=== PATIENT | female | born 1990 | race American Indian/Alaskan Native ===

== ENCOUNTER 2022-04-07 08:05 | Emergency (ER) | payer MEDICAID, SELFPAY ==
[2022-04-07 09:06] LABS: HCG Qualitative,Urine Positive (Negative)
[2022-04-07 09:17] LABS: Bilirubin,Urine NEG (Negative); Blood,Urine NEG (Negative); Color,Urine Amber (Yellow); Mucus,Urine 3+ /HPF
[2022-04-07 11:46] VITALS: BP 128/89
--- NOTE | 2022-04-07 13:08 | Emergency Department Report ---
ED Female HPI - General Chief complaint: Urogenital-Female Stated complaint: 10 WEEKS /UTI/DEHYDRATION Time Seen by Provider: 04/07/22 11:26 Source: patient Mode of arrival: Ambulatory Limitations: No Limitations - History of Present Illness Initial comments: 32-year-old female presents Department complaining of increased urinary urgency decreased urinary production being and is worried about having a UTI. She reports no fever, chills, sweats. No vaginal bleeding, no vaginal discharge. She has an [employer] for which she follows up. MD Complaint: dysuria -: Gradual (3) Location: suprapubic Radiation: suprapubic Severity: mild, moderate Quality: burning Improves with: none Worsens with: none Are you Now?: Yes Associated Symptoms: nausea/vomiting, dysuria - Related Data Previous Rx's Medication Instructions Recorded Last Taken Type DOXYCYCLINE Hyclate [Vibramycin 100 mg PO BID #20 capsule 04/07/14 Unknown Rx CAP] HYDROcodone/APAP 10-325 [Imogene 1 each PO Q4-6H PRN #20 tablet 07/30/14 Unknown Rx 10-325 mg TAB] predniSONE [Deltasone] 50 mg PO QDAY #4 tab 07/30/14 Unknown Rx Azithromycin [Zithromax TAB] 500 mg PO QDAY #5 tablet 02/10/15 Unknown Rx Fluticasone Propionate [Flonase] 2 sprays NS QDAY #1 bottle 02/10/15 Unknown Rx Loratadine (Nf) [Claritin] 10 mg PO DAILY #30 tablet 02/10/15 Unknown Rx Promethazine /Codeine 5 ml PO Q6H PRN #150 ml 02/10/15 Unknown Rx [Phenergan/Codeine 6.25-10 mg/5 ml] predniSONE [Deltasone] 40 mg PO QDAY #10 tab 02/10/15 Unknown Rx Nitrofurantoin [place]/M-Cryst 100 mg PO Q12HR #20 capsule 04/07/22 Unknown Rx [Macrobid CAP] Allergies Allergy/AdvReac Type Severity Reaction Status Date / Time Penicillins Allergy Rash Verified 04/07/14 12:40 ED Review of Systems ROS: Stated complaint: 10 WEEKS /UTI/DEHYDRATION Other details as noted in HPI Comment: All other systems reviewed and negative ED Past Medical Hx - Past Medical History Previous Medical History?: No - Surgical History Past Surgical History?: Yes Additional Surgical History: ectopic - Social History Smoking Status: Never Smoker Substance Use Type: Alcohol - Medications Home Medications: Home Medications Medication Instructions Recorded Confirmed Last Taken Type DOXYCYCLINE Hyclate [Vibramycin 100 mg PO BID #20 capsule 04/07/14 Unknown Rx CAP] HYDROcodone/APAP 10-325 [Imogene 1 each PO Q4-6H PRN #20 tablet 07/30/14 Unknown Rx 10-325 mg TAB] predniSONE [Deltasone] 50 mg PO QDAY #4 tab 07/30/14 Unknown Rx Azithromycin [Zithromax TAB] 500 mg PO QDAY #5 tablet 02/10/15 Unknown Rx Fluticasone Propionate [Flonase] 2 sprays NS QDAY #1 bottle 02/10/15 Unknown Rx Loratadine (Nf) [Claritin] 10 mg PO DAILY #30 tablet 02/10/15 Unknown Rx Promethazine /Codeine 5 ml PO Q6H PRN #150 ml 02/10/15 Unknown Rx [Phenergan/Codeine 6.25-10 mg/5 ml] predniSONE [Deltasone] 40 mg PO QDAY #10 tab 02/10/15 Unknown Rx Nitrofurantoin [place]/M-Cryst 100 mg PO Q12HR #20 capsule 04/07/22 Unknown Rx [Macrobid CAP] ED Physical Exam - General Limitations: No Limitations General appearance: alert, in no apparent distress - Head Head exam: Present: atraumatic, normocephalic - Eye Eye exam: Present: normal appearance, PERRL, EOMI Pupils: Present: normal accommodation - ENT ENT exam: Present: normal exam, normal orophraynx, mucous membranes moist, TM's normal bilaterally - Neck Neck exam: Present: normal inspection, full ROM. Absent: meningismus, lymphadenopathy, thyromegaly - Respiratory Respiratory exam: Present: normal lung sounds bilaterally. Absent: respiratory distress - Cardiovascular Cardiovascular Exam: Present: regular rate, normal rhythm. Absent: systolic murmur, diastolic murmur, rubs, gallop - GI/Abdominal GI/Abdominal exam: Present: soft, normal bowel sounds - Extremities Exam Extremities exam: Present: normal inspection - Back Exam Back exam: Present: normal inspection - Neurological Exam Neurological exam: Present: alert, oriented X3 - Psychiatric Psychiatric exam: Present: normal affect, normal mood - Skin Skin exam: Present: warm, dry, intact, normal color. Absent: rash ED Course Vital Signs 04/07/22 04/07/22 04/07/22 08:18 11:43 11:51 Temperature 98.7 F 97.7 F Pulse Rate 93 H 78 Respiratory 20 16 Rate Blood Pressure 120/73 Blood Pressure 128/89 [Left] O2 Sat by Pulse 99 100 Oximetry ED Medical Decision Making - Medical Decision Making This patient presents to the emergency department with symptoms consistent with acute uncomplicated cystitis. No systemic symptoms. Not septic. She is well-appearing. Low suspicion for acute pyelonephritis given the lack of fever, CVA tenderness, or systemic features. Low suspicion for for kidney stone or infected stone. Patient is 11 weeks reports no pelvic cramping or vaginal bleeding. She is compliant with [employer] appointments. No no indications for labs or imaging at this time. Critical care attestation.: If time is entered above; I have spent that time in minutes in the direct care of this critically ill patient, excluding procedure time. ED Disposition Clinical Impression: UTI (urinary tract infection) Disposition: 01 HOME / SELF CARE / HOMELESS Is pt being admited?: No Does the pt Need Aspirin: No Condition: Stable Instructions: Urinary Tract Infection, Adult, and Urinary Tract Infection, Antibiotic Medicine, Adult Prescriptions: Nitrofurantoin [place]/M-Cryst [Macrobid CAP] 100 mg PO Q12HR #20 capsule Referrals: PRIMARY CARE, [Primary Care Provider] - 3-5 Days
== END 2022-04-07 13:17 | disposition home or self-care (01) ==
LOC: ED 08:05
DX: O23.41 Unspecified infection of urinary tract in pregnancy, first trimester (principal); Z3A.10 10 weeks gestation of pregnancy; F10.20 Alcohol dependence, uncomplicated; Z88.0 Allergy status to penicillin
CPT/HCPCS: 81001; 81025; 87086; 99283